=== PATIENT | male | born 1950 | race Caucasian/White ===

== ENCOUNTER 2021-10-22 23:24 | Inpatient (IN) | payer OTHER, MEDICARE ==
[~2021-10-22] VITALS: Ht 172.7 cm; Wt 40.8 kg
--- NOTE | ~2021-10-22 | CON ---
[address] [address] CONSULTATION Name: JUAN LEWIS Room: [address] IN M.R.#: [id number] Admission: 10/23/21 Attend Phys: Stephan Kaur MD Discharge: Date of : 46 Report #: [id number] THIS REPORT FOR: cc: Kaleb Chavira William F. DO Khosla, Parveen K. MD ~ DATE OF CONSULTATION: 10/24/2021 HISTORY OF PRESENT ILLNESS: This is a 71-year-old male patient who was referred to me for the possibility of Parkinson's disease. The patient is admitted with what looks like COVID pneumonia. He was hypoxic when he came into the Emergency Room. He was on oxygen. He was not in a good mood when I saw him and he refused to cooperate for virtually everything. He thinks people are just trying to force things on him. REVIEW OF SYSTEMS: He refused to provide but from the record, it looks like that he has lost weight. He has refused to eat and he had a history of COPD. He has COVID pneumonia. He is very emaciated person and I do not know how long that is going on. His code situation need to be addressed. One of the record indicated that he also has a history of alcohol abuse. This is all the history I can get by reviewing the record as he refused to provide any history. PHYSICAL EXAMINATION: His exam was even more difficult. NEUROLOGIC: He is very thin individual. He does have some tremor, but he does not tell me how long his tremor is going on. He does not know whether what makes it better or what does not make it better. He moved all 4 extremities, but refused to cooperate after that with sensory or motor examination. I could not look at the fundus. RESPIRATORY: He is short of breath and he is on oxygen. He has multiple abnormalities. EXTREMITIES: Pulses are difficult to tell. There is no edema. NECK: There is no thyroid mass. He did not cooperate after that for examination. LABORATORY DATA: Sodium is 131. He has creatinine of 1.6. His last B12 was normal. There is no imaging study of the brain. IMPRESSION: This patient does have some tremor and may have some Parkinson's disease. He refused to cooperate at this moment and I will suggest not addressing this question at the moment. If he becomes more cooperative and wants to have more evaluation and treatment done, then he can make an appointment with us as an outpatient. We will sign off. I did order TSH [place] [address] CONSULTATION Name: ELM GROVEJUAN Room: [address] IN .R.#: [id number] Admission: 10/23/21 Attend Phys: Stephan Kaur MD Discharge: Date of : 46 Report #: [id number] Thank you very much for this referral. By: [id number] 1938Balbir Leonardo MD /cyndi
[2021-10-22 23:25] VITALS: BP 114/50
[2021-10-22 23:49] LABS: HEMOGLOBIN 13.7 gm/dL (14.0-18.0); MCH 34.5 pg (26.0-34.0); MCHC 34.3 g/dL (28.0-37.0); MCV 100.5 fL (80.0-100.0); MPV 6.5 fl. (7.2-11.1); NUCLEATED RBCS 0 /100WBC; PLATELET COUNT* 465 thou/uL (150-400); RBC 3.98 mil/uL (4.50-6.00); RDW-CV 12.7 % (10.5-14.5); WBC 7.7 thou/uL (4.0-11.0)
[2021-10-22 23:58] LABS: CALCIUM 9.6 mg/dL (8.5-10.1); CREATININE 1.5 mg/dL (0.6-1.3); POTASSIUM 4.8 mmol/L (3.5-5.1)
[2021-10-23 00:01] LABS: BE 1.9 mmol/L (-2 to +3); PCO2 37.1 mmHg (35.0-45.0); PO2 72.7 mmHg (75.0-100.0); pH 7.456 (7.340-7.450)
[2021-10-23 00:01] LABS: APTT 28.8 Seconds (25.0-31.3); INR 1.1; PROTIME 11.2 Seconds (9.20-11.50)
[2021-10-23 00:02] LABS: ALBUMIN 2.7 g/dL (3.4-5.0); MAGNESIUM 2.3 mg/dL (1.8-2.4); TOTAL BILIRUBIN 0.5 mg/dL (<0.1-1.0); TOTAL PROTEIN 7.7 g/dL (6.4-8.2)
[2021-10-23 00:41] LABS: ABSOLUTE LYMPHOCYTES 0.3 thou/uL (0.8-5.3); ABSOLUTE MONOCYTES 0.3 thou/uL (0.0-1.2); ABSOLUTE NEUTROPHILS 7.1 thou/uL (1.6-8.1); CLUMPED PLTS FEW; PLATELET ESTIMATE INCREASED; TOXIC GRANULATION 2+
[2021-10-23 06:04] VITALS: BP 131/61
[2021-10-23 09:54] VITALS: BP 130/61
[2021-10-23] MEDS ORDERED: CELEXA 10 MG TA10 M1 PO (10:06)
[2021-10-23] MEDS ORDERED: CALCIUM500 MG PO (10:06)
[2021-10-23] MEDS ORDERED: APAP W/CODEINE1 TA2 PO (10:06)
[2021-10-23] MEDS ORDERED: VITAMIN B-121000 MC2 PO (10:07)
[2021-10-23] MEDS ORDERED: COMBIVENT RESPIM4 GM INH (10:07)
[2021-10-23] MEDS ORDERED: FOLIC ACID1 MG PO (10:08)
[2021-10-23] MEDS ORDERED: VITAMIN D210 MCG PO (10:08)
[2021-10-23] MEDS ORDERED: MEDROL4 MG PO (10:08)
[2021-10-23] MEDS ORDERED: MIRALAX119 GM PO (10:09)
[2021-10-23] MEDS ORDERED: VITAMIN B-1100 M2 PO (10:09)
[2021-10-23] MEDS ORDERED: SUPER THERAVIT1 EACH PO (10:09)
[2021-10-23] MEDS ORDERED: NICOTINE PATCH1 EAC2 TRANSDERM (10:09)
[2021-10-23 14:37] LABS: % SATURATION 8 % (20-39); IRON 13 ug/dL (50-175)
[2021-10-23 15:14] VITALS: BP 140/64
[2021-10-23 17:55] VITALS: BP 133/66
[2021-10-23 20:00] VITALS: BP 130/69
[2021-10-23 22:56] LABS: URINE BILIRUBIN NEGATIVE (Negative); URINE BLOOD TRACE (Negative); URINE CLARITY CLEAR; URINE COLOR YELLOW; URINE GLUCOSE-RANDOM NEGATIVE (Negative); URINE KETONES TRACE (Negative); URINE LEUKOCYTES-REFLEX NEGATIVE (Negative); URINE NITRITE-REFLEX NEGATIVE (Negative); URINE PROTEIN TRACE (Negative)
[2021-10-24] VITALS (8 sets, daily range): BP systolic 125–152; BP diastolic 54–66
--- NOTE | 2021-10-24 09:34 | EKG ---
[place] [address] ELECTROCARDIOGRAM REPORT Name: JUAN LEWIS Room: [address] ADM IN M.R.#: [id number] Admission: 10/23/21 Attend Phys: Stephan Kaur, Discharge: Date of : 46 Date of Service: 10/22/21 2332 Report #: [id number] THIS REPORT FOR: //name// [facility] ED Test Date: 2021-10-22 Test Time: 23:32:57 Pat Name: JUAN LEWIS Department: Room: [address] Gender: M [employer]: [place] : 1950 Requested By: Sally Huff Order Number: [id number] Mack MD: Abilio Wang Measurements Intervals [place] Rate: 86 P: 90 CT: 142 QRS: 0 QRSD: 109 T: 35 QT: 360 QTc: 431 Interpretive Statements Sinus rhythm Biatrial enlargement Low voltage, extremity leads Nonspecific T abnormalities, diffusely No previous ECG available for comparison Electronically Signed On 10-24-2021 9:33:43 HAT CHECKER by Abilio Wang [email or web address] <ELECTRONICALLY SIGNED> By: Abilio Wang MD, [facility] 10/24/21 0933 2332 2332 Abilio Wang MD, [facility] /EPI
[2021-10-25 04:43] VITALS: BP 152/58
[2021-10-25 08:00] VITALS: BP 142/59
[2021-10-25 09:58] LABS: ABSOLUTE LYMPHOCYTES 0.6 thou/uL (0.8-5.3); ABSOLUTE MONOCYTES 0.2 thou/uL (0.0-1.2); ABSOLUTE NEUTROPHILS 3.4 thou/uL (1.6-8.1); BASOPHILS 0.2 %; EOSINOPHILS 0.3 %; HEMATOCRIT 35.3 % (42.0-52.0); LYMPHOCYTES 13.4 %; MCH 34.5 pg (26.0-34.0); MCV 101.4 fL (80.0-100.0); MONOCYTES 5.3 %; MPV 6.2 fl. (7.2-11.1); NUCLEATED RBCS 0 /100WBC; POLYS 80.8 %; RBC 3.48 mil/uL (4.50-6.00); RDW-CV 12.4 % (10.5-14.5); WBC 4.2 thou/uL (4.0-11.0)
[2021-10-25 09:59] LABS: PLATELET COUNT* 356 thou/uL (150-400)
[2021-10-25 10:16] LABS: ALBUMIN 1.9 g/dL (3.4-5.0); CREATININE 0.7 mg/dL (0.6-1.3); POTASSIUM 3.9 mmol/L (3.5-5.1); TOTAL BILIRUBIN 0.6 mg/dL (<0.1-1.0); TOTAL PROTEIN 6.3 g/dL (6.4-8.2)
[2021-10-25 10:19] LABS: INR 1.1; PROTIME 11.3 Seconds (9.20-11.50)
[2021-10-25 12:00] VITALS: BP 163/83
[2021-10-25 16:00] VITALS: BP 157/84
[2021-10-25 19:42] VITALS: BP 126/56
[2021-10-26] VITALS: BP 134/56
[2021-10-26 03:59] VITALS: BP 135/57
[2021-10-26 08:49] VITALS: BP 133/61
[2021-10-26 11:58] VITALS: BP 148/70
[2021-10-26 16:03] VITALS: BP 107/55
[2021-10-26 20:00] VITALS: BP 132/65
[2021-10-27] VITALS: BP 138/59
[2021-10-27 07:55] VITALS: BP 109/62
[2021-10-27] MEDS ORDERED: MEGESTROL400 MG/11 PO (08:58)
[2021-10-27] MEDS ORDERED: MIRTAZAPINE15 M2 PO (08:58)
[2021-10-27] MEDS ORDERED: CALCIUM500 MG PO (08:58)
[2021-10-27] MEDS ORDERED: DOXYCYCLINE 10100 MG PO (08:58)
[2021-10-27 12:00] VITALS: BP 120/52
== END 2021-10-27 15:17 | DRG 177 ==
LOC: M.ERS 23:24 → M.ORTHSURG 10-23 01:47 → M.TBA-ER 10-23 01:47 → M.ORTHSURG 10-24 03:05
PROVIDERS: Internal Medicine; Nurse Practitioner Family; Personal Emergency Response Attendant; ADMIT Internal Medicine; ATTEND Internal Medicine
PROC: 05HC33Z Insertion of Infusion Device into Left Basilic Vein, Percutaneous Approach (ICD-10-PCS; principal; 2021-10-26)
DX: U07.1 COVID-19 (principal); J12.82 Pneumonia due to coronavirus disease 2019; J96.21 Acute and chronic respiratory failure with hypoxia; E43 Unspecified severe protein-calorie malnutrition; G93.41 Metabolic encephalopathy; J15.9 Unspecified bacterial pneumonia; J44.0 Chronic obstructive pulmonary disease with (acute) lower respiratory infection; Z68.1 Body mass index [BMI] 19.9 or less, adult; N17.9 Acute kidney failure, unspecified; R62.7 Adult failure to thrive; F32.9 Major depressive disorder, single episode, unspecified; R13.10 Dysphagia, unspecified; G20 Parkinson's disease; F02.80 Dementia in other diseases classified elsewhere, unspecified severity, without behavioral disturbance, psychotic disturbance, mood disturbance, and anxiety; Z82.49 Family history of ischemic heart disease and other diseases of the circulatory system; Z79.899 Other long term (current) drug therapy; E86.0 Dehydration

== ENCOUNTER 2021-10-28 08:53 | Emergency (ER) | payer OTHER, MEDICARE ==
[~2021-10-28] VITALS: Ht 175.3 cm; Wt 44.0 kg
[~2021-10-28 08:53] MED LIST: APAP W/CODEINE1 TA2 PO; CALCIUM500 MG PO; CELEXA 10 MG TA10 M1 PO; COMBIVENT RESPIM4 GM INH; DOXYCYCLINE 10100 MG PO; FOLIC ACID1 MG PO; MEDROL4 MG PO; MEGESTROL400 MG/11 PO; MIRALAX119 GM PO; MIRTAZAPINE15 M2 PO; NICOTINE PATCH1 EAC2 TRANSDERM; SUPER THERAVIT1 EACH PO; VITAMIN B-1100 M2 PO; VITAMIN B-121000 MC2 PO; VITAMIN D210 MCG PO
[2021-10-28 10:22] VITALS: BP 117/56
== END 2021-10-28 10:55 | disposition home or self-care (01) ==
LOC: M.ERS 08:53
DX: S01.81XA Laceration without foreign body of other part of head, initial encounter (principal); J44.9 Chronic obstructive pulmonary disease, unspecified; F10.10 Alcohol abuse, uncomplicated; Z79.891 Long term (current) use of opiate analgesic; Z79.899 Other long term (current) drug therapy; W06.XXXA Fall from bed, initial encounter; Y93.89 Activity, other specified; Y92.89 Other specified places as the place of occurrence of the external cause; Y99.8 Other external cause status